=== PATIENT | female | born 1940 | race African-American/Black ===

== ENCOUNTER 2018-01-04 09:25 | Emergency (ER) | payer MEDICARE, OTHER ==
[2018-01-04] MEDS ORDERED: AMLODIPINE BESYLATE 5 MG TABLET PO ONE (09:39)
[2018-01-04] MEDS ORDERED: LISINOPRIL 10 MG TABLET PO ONE (09:39)
--- NOTE | 2018-01-04 09:42 | ER Document Report ---
ED Medical Screen (RME) - General Chief Complaint: General Weakness Stated Complaint: HEADACHE/WEAKNESS Time Seen by Provider: 01/04/18 09:38 Notes: 77 years old female presents today with left weakness for the last few days, and difficulty in walking and vomiting. This morning she did not want to eat anything or drink anything. They called her insurance company and insurance company requested to come to the ED for evaluation. Therefore came to the ED. 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 On examination she has pronator drift on the left side and left lower extremity weakness. TRAVEL OUTSIDE OF THE [place] IN LAST 30 DAYS: No - Related Data Allergies/Adverse Reactions: No Known Allergies Allergy (Verified 01/22/14 14:21) Past Medical History - Social History Chew tobacco use (# tins/day): No Frequency of alcohol use: Occasional Drug Abuse: None - Past Medical History Cardiac Medical History: Reports: Hx Hypercholesterolemia, Hx Hypertension Endocrine Medical History: Reports: Hx Diabetes Mellitus Type 2 Renal/ Medical History: Denies: Hx Peritoneal Dialysis Past Surgical History: Reports: Hx Hysterectomy - Immunizations Hx Diphtheria, Pertussis, Tetanus Vaccination: Yes Physical Exam - Vital signs Vitals: Temp Pulse Resp BP Pulse Ox 97.8 F 80 20 186/77 H 98 01/04/18 09:30 01/04/18 09:30 01/04/18 09:30 01/04/18 09:30 01/04/18 09:30 Course - Vital Signs Vital signs: Temp Pulse Resp BP Pulse Ox 97.8 F 80 20 186/77 H 98 01/04/18 09:30 01/04/18 09:30 01/04/18 09:30 01/04/18 09:30 01/04/18 09:30
--- NOTE | 2018-01-04 10:27 | RADIOLOGY REPORT (SQ) ---
EXAM DESCRIPTION: CT HEAD WITHOUT COMPLETED DATE/TIME: 01/04/2018 10:03 am REASON FOR STUDY: cva COMPARISON: 01/22/2014 TECHNIQUE: Axial images acquired through the brain without intravenous contrast. Images reviewed wi th bone, brain and subdural windows. Images stored on PACS. All CT scanners at this facility use dose modulation, iterative reconstruction, and/or weight based d osing when appropriate to reduce radiation dose to as low as reasonably achievable (ALARA). [facility]: Dose Right [facility]: CareDose [facility]: Dose Right [facility]: Teradose 4D [facility]: Smart [employer] RADIATION DOSE: CT Rad equipment meets quality standard of care and radiation dose reduction techniq ues were employed. CTDIvol: 53.2 mGy. DLP: 1070 mGy-cm. mGy. LIMITATIONS: None. FINDINGS: VENTRICLES: Prominent. CEREBRUM: No masses. No hemorrhage. No midline shift. Areas of low density in the white matter mos t likely due to chronic micro-vascular ischemic change. No evidence for acute infarction. CEREBELLUM: No masses. No hemorrhage. No alteration of density. No evidence for acute infarction. EXTRAAXIAL SPACES: Mild age-related involutional change. No fluid collections. No masses. ORBITS AND GLOBE: No intra- or extraconal masses. Normal contour of globe without masses. CALVARIUM: No fracture. PARANASAL SINUSES: There is mild ethmoid air cell disease. There is a small retention cyst or polyp right maxillary sinus. SOFT TISSUES: No mass or hematoma. OTHER: No other significant finding. IMPRESSION: MILD CHRONIC CHANGES OF ATROPHY AND MICROVASCULAR ISCHEMIA. NO ACUTE PROCESS. EVIDENCE OF ACUTE STROKE: NO. TECHNICAL DOCUMENTATION: JOB ID: [id number] Quality ID # [id number]: Final reports with documentation of one or more dose reduction techniques (e.g., Au tomated exposure control, adjustment of the mA and/or kV according to patient size, use of iterative reconstruction technique) 2010 [employer]- All Rights Reserved Reading location - IP/workstation name: [email or web address]
[2018-01-04 10:44] LABS: ABSOLUTE BASOPHILS # (AUTO) 0.1 10^3/uL (0.0-0.2); ABSOLUTE EOSINOPHILS # (AUTO) 0.2 10^3/uL (0.0-0.6); ABSOLUTE LYMPHOCYTES (AUTO) 1.6 10^3/uL (0.5-4.7); ABSOLUTE MONOCYTES (AUTO) 0.3 10^3/uL (0.1-1.4); ABSOLUTE NEUT (AUTO) 3.8 10^3/uL (1.7-8.2); BASOPHILS % (AUTO) 1.2 % (0-2); EOSINOPHILS % (AUTO) 3.8 % (0-6); HEMOGLOBIN 12.3 g/dL (12.0-15.5); MEAN CORPUSCULAR HEMOGLOBIN 30.7 pg (27.0-33.4); MEAN CORPUSCULAR HGB CONC 33.3 g/dL (32.0-36.0); MEAN CORPUSCULAR VOLUME 92 fl (80-97); MONOCYTES % (AUTO) 5.4 % (3-13); PLATELET COUNT 305 10^3/uL (150-450); RED BLOOD COUNT 4.01 10^6/uL (3.72-5.28); RED CELL DISTRIBUTION WIDTH 13.8 % (11.5-14.0); SEGMENTED NEUTROPHILS % (AUTO) 63.6 % (42-78); TOTAL CELLS COUNTED % (AUTO) 100 %
--- NOTE | 2018-01-04 10:57 | ER Document Report ---
ED Dizziness/Weakness - General Chief Complaint: General Weakness Stated Complaint: HEADACHE/WEAKNESS Time Seen by Provider: 01/04/18 09:38 Notes: This is a pleasant 77-year-old female to the emergency department for evaluation of facial twitching. Patient states that he has been getting worse over the last several years. Was seen by a neurosurgeon but he said that there is no neurosurgical issues that she needs to see a neurologist. She has never followed up with a neurologist. She states that in the morning when she is rested everything is fine but throughout the day her muscles began to get weak mostly on the left side. Also complaining of worsening tremors of her face especially the jaw. Occasionally she has some pain in the left temporal lobe. Sometimes the pain is behind her left ear. Denies any fever, chills or sweats at this time. TRAVEL OUTSIDE OF THE [place] IN LAST 30 DAYS: No - HPI Onset/Duration: Gradual, Waxing and waning - Related Data Allergies/Adverse Reactions: No Known Allergies Allergy (Verified 01/22/14 14:21) Past Medical History - General Information source: Patient, Relative - Social History Smoking Status: Never Smoker Chew tobacco use (# tins/day): No Frequency of alcohol use: Occasional Drug Abuse: None Lives with: Family Family History: Reviewed & Not Pertinent Patient has suicidal ideation: No Patient has homicidal ideation: No - Past Medical History Cardiac Medical History: Reports: Hx Hypercholesterolemia, Hx Hypertension Endocrine Medical History: Reports: Hx Diabetes Mellitus Type 2 Renal/ Medical History: Denies: Hx Peritoneal Dialysis Past Surgical History: Reports: Hx Hysterectomy - Immunizations Hx Diphtheria, Pertussis, Tetanus Vaccination: Yes Review of Systems - Review of Systems Notes: Constitutional: denies: Chills, Diaphoresis, Fever, Malaise, Weakness EENT: denies: Eye discharge, Blurred vision, Tearing, Double vision, Nose congestion, Nose discharge, Throat swelling, Mouth pain Cardiovascular: denies: Palpitations, Heart racing, Orthopnea, Dyspnea, Chest pain Respiratory: denies: Cough, Hurts to breathe, Wheezing, Shortness of breath Gastrointestinal: denies: Abdominal pain, Diarrhea, Nausea, Vomiting, Black stools, bright red blood in stool Genitourinary: denies: Burning, Dysuria, Discharge, Frequency, Flank pain, Hematuria Musculoskeletal: denies: Joint pain, Joint swelling, Muscle pain, Muscle stiffness, back pain Hematologic/Lymphatic: denies: Anemia, Easy bleeding, Easy bruising, Blood clots Neurological/Psychological: Positive for muscle twitching, facial tremors, headache Skin: No lesions, no masses, no skin breakdown, no abscesses Physical Exam - Vital signs Vitals: Temp Pulse Resp BP Pulse Ox 97.8 F 80 20 186/77 H 98 01/04/18 09:30 01/04/18 09:30 01/04/18 09:30 01/04/18 09:30 01/04/18 09:30 Interpretation: Normal - General General appearance: Appears well, Alert - HEENT Head: Normocephalic, Atraumatic Eyes: Normal Pupils: PERRL - Respiratory Respiratory status: No respiratory distress Chest status: Nontender Breath sounds: Normal Chest palpation: Normal - Cardiovascular Rhythm: Regular Heart sounds: Normal auscultation Murmur: No - Abdominal Inspection: Normal Distension: No distension Bowel sounds: Normal Tenderness: Nontender Organomegaly: No organomegaly - Back Back: Normal, Nontender - Extremities General upper extremity: Normal inspection, Nontender, Normal color, Normal ROM , Normal temperature General lower extremity: Normal inspection, Nontender, Normal color, Normal ROM , Normal temperature. No: Ivet's sign - Neurological Neuro grossly intact: Yes Cognition: Normal Orientation: AAOx4 [place] Coma Scale Eye Opening: Spontaneous Mariella Coma Scale Verbal: Oriented Mariella Coma Scale Motor: Obeys Commands Mariella Coma Scale Total: 15 Speech: Normal Cranial nerves: Normal, Other - Patient does have tremor to her face. 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 No: Pronator drift, Weakness, Hemiplegia Sensory: Normal - Psychological Associated symptoms: Normal affect, Normal mood - Skin Skin Temperature: Warm Skin Moisture: Dry Skin Color: Normal Course - Re-evaluation Re-evalutation: 01/04/18 14:12 CT head was negative. MRI is negative. Labs are unremarkable. Patient does have some dystonia and some involuntary tremors. One likely this is Parkinson' s disease. Patient will need to be seen by neurologist. We will give her follow-up information for neurology. At this time feel comfortable discharging her in stable condition. 08/08/18 14:14 Laboratory 01/04/18 01/04/18 01/04/18 10:14 10:14 11:12 WBC 6.0 RBC 4.01 Hgb 12.3 Hct 37.0 MCV 92 MCH 30.7 MCHC 33.3 RDW 13.8 Plt Count 305 Seg Neutrophils % 63.6 Lymphocytes % 26.0 Monocytes % 5.4 Eosinophils % 3.8 Basophils % 1.2 Absolute Neutrophils 3.8 Absolute Lymphocytes 1.6 Absolute Monocytes 0.3 Absolute Eosinophils 0.2 Absolute Basophils 0.1 Sodium 143.9 Potassium 4.4 Chloride 103 Carbon Dioxide 26 Anion Gap 15 BUN 10 Creatinine 0.68 Est GFR ( Amer) > 60 Est GFR (Non-Af Amer) > 60 Glucose 110 Calcium 9.8 Total Bilirubin 0.4 Direct Bilirubin 0.2 Neonat Total Bilirubin Not Reportable Neonat Direct Bilirubin Not Reportable Neonat Indirect Bili Not Reportable AST 24 ALT 22 Alkaline Phosphatase 37 L Total Protein 8.1 Albumin 4.6 Urine Color COLORLESS Urine Appearance CLEAR Urine pH 7.0 Ur Specific [place] 1.004 Urine Protein NEGATIVE Urine Glucose (UA) NEGATIVE Urine Ketones NEGATIVE Urine Blood NEGATIVE Urine Nitrite NEGATIVE Urine Bilirubin NEGATIVE Urine Urobilinogen NEGATIVE Ur Leukocyte Esterase NEGATIVE Urine WBC (Auto) 1 Urine Mucus (Auto) RARE Urine Ascorbic Acid NEGATIVE Head CT 01/04/18 09:38 IMPRESSION: MILD CHRONIC CHANGES OF ATROPHY AND MICROVASCULAR ISCHEMIA. NO ACUTE PROCESS. EVIDENCE OF ACUTE STROKE: NO. Head MRI 01/04/18 10:49 IMPRESSION: No acute findings. Minimal chronic small vessel disease. EVIDENCE OF ACUTE STROKE: NO. 01/04/18 14:56 Patient has no evidence on CT or MRI of acute stroke. Labs are unremarkable. I had a very long discussion with the family as well as the patient. There is a possibility this could be Parkinson's with these involuntary tremors. Alternatively this could also represent a myasthenia gravis issue with her worsening weakness throughout the day. Follow-up information has been provided follow-up with a neurologist. I have refilled her blood pressure medications. At this time advise her to return for any worsening symptoms or concerns. - Vital Signs Vital signs: Temp Pulse Resp BP Pulse Ox 98.2 F 81 16 171/81 H 100 01/04/18 14:45 01/04/18 14:45 01/04/18 14:45 01/04/18 14:45 01/04/18 14:45 - Laboratory Result Diagrams: 01/04/18 10:14 01/04/18 10:14 Laboratory results interpreted by me: 01/04/18 10:14 Alkaline Phosphatase 37 L Discharge - Discharge Clinical Impression: Tremors of nervous system Condition: Good Disposition: HOME, SELF-CARE Instructions: Weakness ([facility]) Additional Instructions: It is impossible at this time to determine whether or not you have Parkinson's. This would need to be diagnosed by brain specialist called a neurologist. Will up with neurology. In the event that you have any worsening symptoms please return. Prescriptions: Amlodipine Besylate 5 mg PO DAILY 90 Days #90 tab Lisinopril [Prinivil 40 mg Tablet] 40 mg PO DAILY 90 Days #90 tablet Referrals: NATE WADE MD [NO LOCAL MD] - Follow up in 1 week
[2018-01-04 11:15] LABS: ALANINE AMINOTRANSFERASE 22 U/L (9-52); ALBUMIN 4.6 g/dL (3.5-5.0); ALKALINE PHOSPHATASE 37 U/L (38-126); ANION GAP 15 (5-19); ASPARTATE AMINO TRANSFERASE 24 U/L (14-36); BILIRUBIN,DIRECT 0.2 mg/dL (0.0-0.4); BILIRUBIN,TOTAL 0.4 mg/dL (0.2-1.3); BLOOD UREA NITROGEN 10 mg/dL (7-20); CALCIUM 9.8 mg/dL (8.4-10.2); CARBON DIOXIDE 26 mmol/L (22-30); CHLORIDE 103 mmol/L (98-107); GLUCOSE 110 mg/dL (75-110); POTASSIUM 4.4 mmol/L (3.6-5.0); SODIUM 143.9 mmol/L (137-145); TOTAL PROTEIN 8.1 g/dL (6.3-8.2)
[2018-01-04 12:03] LABS: APPEARANCE,URINE CLEAR; BILIRUBIN,URINE NEGATIVE (NEGATIVE); COLOR,URINE COLORLESS; GLUCOSE, URINE NEGATIVE (NEGATIVE); KETONES,URINE NEGATIVE (NEGATIVE); LEUKOCYTE ESTERASE,URINE NEGATIVE (NEGATIVE); NITRITE,URINE NEGATIVE (NEGATIVE); PROTEIN,URINE NEGATIVE (NEGATIVE); URINE SPECIFIC GRAVITY 1.004; UROBILINOGEN,URINE NEGATIVE mg/dL (<2.0)
--- NOTE | 2018-01-04 13:55 | RADIOLOGY REPORT (SQ) ---
EXAM DESCRIPTION: MRI HEAD WITHOUT COMPLETED DATE/TIME: 01/04/2018 1:15 pm REASON FOR STUDY: left sided weakness COMPARISON: CT brain 01/04/2018, 08/22/2013, 01/26/2012 TECHNIQUE: Multiplanar imaging includes non-contrasted T1, T2, FLAIR, and diffusion with ADC map seq uences. Images stored on PACS. LIMITATIONS: None. FINDINGS: ANATOMY: No developmental or anomalies. Normal vascular flow voids. Pituitary fossa normal . CSF SPACES: Normal in size and contour. No hemorrhage. CEREBRUM: Sulci and gyri normal in size and contour. Few foci of increased white matter signal on FL AIR imaging, from chronic small vessel ischemic change. 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 No evid ence of hemorrhage, mass, or extraaxial fluid collection. POSTERIOR FOSSA: Increased FLAIR/ T2 signal in the left cerebellar hemisphere along the middle cerebe llar peduncle likely small vessel disease, chronic. No associated diffusion-weighted signal abnormal ities. No hemorrhage. No edema, masses or mass effect. Internal auditory canals, cerebello-pontine angles, mastoids normal. DIFFUSION IMAGING: Negative for acute or sub-acute infarction. ORBITS: Post cataract surgery. PARANASAL SINUSES: Bilateral ethmoid and right frontal mucous membrane thickening and fluid OTHER: No other significant finding. IMPRESSION: No acute findings. Minimal chronic small vessel disease. EVIDENCE OF ACUTE STROKE: NO. TECHNICAL DOCUMENTATION: JOB ID: [id number] [place]- All Rights Reserved Reading location - IP/workstation name: [email or web address]
[2018-01-04 14:47] VITALS: BP 171/81
== END 2018-01-04 15:04 | disposition home or self-care (01) ==
LOC: ER 09:25
DX: G24.9 Dystonia, unspecified (principal); R53.1 Weakness; R51 Headache; I10 Essential (primary) hypertension; E11.9 Type 2 diabetes mellitus without complications; I67.82 Cerebral ischemia
CPT/HCPCS: 36415; 70450; 70551; 80053; 81001; 85025; 99285

== ENCOUNTER 2018-02-11 09:45 | Emergency (ER) | payer MEDICARE, OTHER ==
[2018-02-11 09:54] VITALS: BP 166/72
[2018-02-11] MEDS ORDERED: AMLODIPINE BESYLATE 5 MG TABLET PO ONE (10:09)
[2018-02-11] MEDS ORDERED: DIPH/PERTUSS(ACELL)/TETANUS VAC/PF 0.5 ML SYR (>=10YO) IM ONE (10:09)
[2018-02-11] MEDS ORDERED: PREDNISONE 20 MG TABLET PO ONE (10:09)
[2018-02-11] MEDS ORDERED: LISINOPRIL 10 MG TABLET PO ONE (10:09)
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
== END 2018-02-11 11:24 | disposition home or self-care (01) ==
LOC: ER 09:45
DX: Z76.0 Encounter for issue of repeat prescription (principal); S40.811A Abrasion of right upper arm, initial encounter; R21 Rash and other nonspecific skin eruption; I10 Essential (primary) hypertension; E11.9 Type 2 diabetes mellitus without complications; X58.XXXA Exposure to other specified factors, initial encounter
CPT/HCPCS: 99282; 90715; A9270 ×3; J7512